=== PATIENT | female | born 1965 | race Caucasian/White ===

== ENCOUNTER → 2016-08-20 | Outpatient (CLI) | payer BC | LOC: MC.RAD 11:20 | DX: Z12.31 Encounter for screening mammogram for malignant neoplasm of breast (principal) ==

== ENCOUNTER → 2017-11-11 | Outpatient (CLI) | payer BC | LOC: MC.RAD 09:58 | DX: Z12.31 Encounter for screening mammogram for malignant neoplasm of breast (principal) ==

== ENCOUNTER → 2018-11-18 | Outpatient (CLI) | payer BC | LOC: MC.RAD 07:35 | DX: Z12.31 Encounter for screening mammogram for malignant neoplasm of breast (principal) ==

== ENCOUNTER → 2020-03-01 | Outpatient (CLI) | payer BC | LOC: MC.RAD 16:00 | DX: Z12.31 Encounter for screening mammogram for malignant neoplasm of breast (principal); N64.89 Other specified disorders of breast ==

== ENCOUNTER → 2020-03-07 | Outpatient (CLI) | payer BC | LOC: MC.RAD 07:30 | DX: N64.89 Other specified disorders of breast (principal) ==

== ENCOUNTER → 2020-10-31 | Outpatient (CLI) | payer OTHER | LOC: MC.RAD 13:55 | DX: N64.89 Other specified disorders of breast (principal) ==

== ENCOUNTER → 2021-05-04 | Outpatient (CLI) | payer OTHER | LOC: MC.RAD 14:32 | DX: Z12.31 Encounter for screening mammogram for malignant neoplasm of breast (principal) ==

== ENCOUNTER → 2022-08-24 | Outpatient (CLI) | payer OTHER | LOC: MC.RAD 10:28 | DX: Z12.31 Encounter for screening mammogram for malignant neoplasm of breast (principal) ==

== ENCOUNTER → 2023-09-11 | Outpatient (CLI) | payer OTHER ==
[~2023-09-11] MED LIST: AEROSOL THERAPY1 DEV; CALCIUM CITRATE PO; CENTRUM SILVER1 TAB; CRESTOR5 MG PO; EFFEXOR-XR150 MG PO; LEVSIN0.125 M1 PO; NATURE'S BLE1000 MCG; OMEGA-31 SGL PO; PREMARIN 0.60.625 M1 PO; PROBIOTIC BLEN1 EACH PO; SENNA-LAX8.6 MG PO; SINGULAIR 110 MG/TAB PO; STOOL SOFTENER100 M2 PO; SYNTHROID0.075 MG/T PO; TRIAMCINOLONE TD; VITAMIN D3; ZYRTEC 10MG10 MG PO
== END ==
LOC: MC.RAD 11:00
DX: Z12.31 Encounter for screening mammogram for malignant neoplasm of breast (principal)